=== PATIENT | male | born 2000 | race Caucasian/White ===

== ENCOUNTER 2024-09-21 01:16 | Emergency (ER) | payer SELFPAY ==
[~2024-09-21] VITALS: Ht 182.9 cm; Wt 82.0 kg
[2024-09-21 01:20] VITALS: TEMP 37.1; O2SAT 99
[2024-09-21] MEDS: OLANZAPINE 5MG TABLET ODT PO ONE (01:45)
[2024-09-21 02:12] LABS: CLARITY URINE CLEAR (CLEAR); COLOR URINE YELLOW (YELLOW); GLUCOSE URINE NEGATIVE (NEGATIVE); KETONES URINE TRACE (NEGATIVE); LEUKOCYTE ESTERASE URINE NEGATIVE (NEGATIVE); NITRITE URINE NEGATIVE (NEGATIVE); OCCULT BLOOD URINE NEGATIVE (NEGATIVE); PROTEIN URINE NEGATIVE (NEGATIVE); SPECIFIC GRAVITY URINE 1.015 (1.005-1.030); UROBILINOGEN URINE 0.2 E.U./dL (0.2-1.0)
[2024-09-21 02:50] LABS: *AMPHETAMINES SCREEN URINE NEGATIVE (NEGATIVE); *BARBITURATES SCREEN URINE NEGATIVE (NEGATIVE); *BENZODIAZEPINES SCREEN URINE NEGATIVE (NEGATIVE); *COCAINE SCREEN URINE NEGATIVE (NEGATIVE)
[2024-09-21 02:50] LABS: BASOPHILS % 0.7 % (0.0-2.0); EOSINOPHILS % 0.7 % (0.0-5.0); HEMATOCRIT. 42.2 % (42.0-52.0); LYMPHOCYTES % 18.2 % (20.0-50.0); MEAN CORPUSCULAR HEMOGLOBIN 29.1 pg (28.0-32.0); MEAN CORPUSCULAR HGB CONC 33.2 g/dL (31.0-37.0); MEAN CORPUSCULAR VOLUME 87.9 fL (80.0-94.0); MEAN PLATELET VOLUME 7.8 fl (7.4-10.4); MONOCYTES % 7.6 % (2.0-8.0); NEUTROPHILS % 72.8 % (40.0-76.0); PLATELET 192 x1000/uL (130-400); RED BLOOD CELL COUNT 4.81 mill/uL (4.7-6.1); RED CELL DISTRIBUTION WIDTH 12.5 % (11.6-14.6); WHITE BLOOD COUNT 8.8 x1000/uL (4.5-11.0)
[2024-09-21 02:51] LABS: CANNABINOID URINE SCREEN NEGATIVE (NEGATIVE); ECSTASY MDMA SCREEN URINE NEGATIVE (NEGATIVE); METHADONE URINE SCREEN NEGATIVE (NEGATIVE); OPIATES URINE SCREEN NEGATIVE (NEGATIVE); PHENCYCLIDINE URINE SCREEN NEGATIVE (NEGATIVE)
[2024-09-21 03:23] LABS: CHLORIDE 103 mEq/L (98-107); SODIUM 140 mEq/L (136-145)
[2024-09-21 03:24] LABS: CALCIUM 9.8 mg/dL (8.7-10.4); CARBON DIOXIDE 28 mEq/L (21-32)
[2024-09-21 03:29] LABS: CREATININE 1.1 mg/dL (0.6-1.3); GLUCOSE 114 mg/dL (70-105); UREA NITROGEN BLOOD 13 mg/dL (9-23)
[2024-09-21 03:31] LABS: ACETAMINOPHEN < 2 ug/mL (10-30)
[2024-09-21 03:59] LABS: ETHANOL BLOOD < 10 mg/dL (<10)
[2024-09-21] MEDS: DIPHENHYDRAMINE 50MG/ML VIAL IM ONE (04:54)
[2024-09-21] MEDS: HALOPERIDOL LACTATE 5MG/ML VIAL IM ONE (04:54)
[2024-09-21] MEDS: LORAZEPAM 2MG/ML INJ IM ONE (04:54)
[2024-09-21 11:07] VITALS: BP 126/70; PULSE 90; RESP 18; O2SAT 99
== END 2024-09-21 11:21 | disposition home or self-care (01) ==
LOC: ER 01:41
DX: R46.2 Strange and inexplicable behavior (principal); Z79.899 Other long term (current) drug therapy; Z20.822 Contact with and (suspected) exposure to COVID-19
CPT/HCPCS: 80305; 80048; 81003; 80307; 80329; 80320; 85025; 36415; 96372; 99285; 87426; J1200; J1630; J2060; G0480